=== PATIENT | female | born 1935 | race Caucasian/White ===

== ENCOUNTER 2016-09-19 19:05 | Emergency (ER) ==
[2016-09-19] MEDS ORDERED: TYLENOL ONE (19:17)
[2016-09-19] MEDS ORDERED: TYLENOL PO ONE (19:19)
[2016-09-19] MEDS ORDERED: XYLOCAINE-MPF 1% 5 ML ONE (20:50)
--- NOTE | 2016-09-19 21:09 | PROVIDER DOCUMENTATION ---
HPI-Head Injury - General Chief Complaint: Head Injury Stated Complaint: Fall Time Seen by Provider: 09/19/16 19:14 Source: patient Allergies/Adverse Reactions: Patient Allergies Allergy/AdvReac Type Severity Reaction Status Date / Time Penicillins Allergy Intermediate RASH Verified 09/19/16 19:11 Home Medications: Amlodipine [Norvasc] 5 mg PO QAM 08/18/13 Aspirin 81 mg PO DAILY 08/18/13 Atenolol 50 mg PO QPM 08/18/13 Clopidogrel [Plavix] 75 mg PO QAM 08/18/13 Furosemide 40 mg PO QAM 08/18/13 Glipizide 5 mg PO BID 08/18/13 Imipramine 20 mg PO QHS 08/18/13 Isosorbide Mononitrate E.r. [Imdur] 30 mg PO QAM 08/18/13 Levothyroxine [Synthroid] 50 microgm PO QAM 08/18/13 Simvastatin 40 mg PO QPM 08/18/13 Spironolactone 50 mg PO QAM 08/18/13 Thonzylamine/Phenylephrine/Dm [Poly-Hist Dm Liquid] 2 tsp PO 4XDAY PRN PRN 05/07 - History of Present Illness-Head Injury Nature of Presenting Problem: 81 y/o WF present the ED after tripping at home cuasin her to have a cut on the bridge of her nose and an abrasion on her forehead and left knee. No LOC per family Head Injury Location: reports: frontal Other injuries associated with incident:: reports: head, LLE Quality of Pain: reports: aching Severity: reports: mild, moderate Onset/Duration: reports: just prior to arrival Timing: reports: still present Method of Injury: reports: fell Any recent trauma/injury?: reports: none Loss of Consciousness: no loss of consciousness Modifying Factors: improves with: nothing Injury Associated Symptoms: denies: back/neck pain, chest pain, dizziness, headaches, shortness of breath, vomiting, trouble walking Locality of Occurance: Home Similar Symptoms Previously?: No Recently seen or treated by another doctor?: No Review of Systems - Adult - REVIEW OF SYSTEMS - ADULT Constitutional: denies: chills, fever Ears, Nose, Mouth & Throat: reports: ear pain Cardiovascular: denies: chest pain, edema Respiratory: denies: cough, shortness of breath, wheezing Musculoskeletal: reports: bone pain (nose), joint pain (left knee) Neurological: denies: dizziness/vertigo, headache/migraines Past History - Adult - PAST MEDICAL HISTORY-ADULT Review of Records: reports: Old Records Reviewed, Nursing Assessment Review Major Childhood Illnesses: reports: denies history Cardiovascular: reports: CAD, CHF, HTN, hyperlipidemia Respiratory: reports: COPD Gastrointestinal: reports: diverticulosis, polyps Genitourinary: reports: kidney disease Endocrine/Immune: reports: cancer (skin), Diabetes Other Conditions: reports: other (renal disease) - PRIOR SURGERIES/PROCEDURES Surgical/Procedure History: reports: appendectomy, cholecystectomy, cardiac stent, hysterectomy, BTL, tonsillectomy, other (ectopic ) - PRIOR HOSPITALIZATIONS Prior Hospitalizations: reports: none - IMMUNIZATION STATUS Childhood Immunizations: See Nurse Assessment Flu Vaccine: See Nurse Assessment - FAMILY HISTORY Family History: reviewed, not pertinent - SOCIAL HISTORY Smoking: non-smoker Living Situation: family Occupation: Retired Physical Exam- Neurological - Physical Exam-Neuro Initial Vital Signs Reviewed: Yes General Appearance: appears well, alert, no apparent distress Eye Exam: bilateral eye: normal inspection, PERRL, EOMI HENMT: TMs normal, pharynx normal, frontal tenderness. negative: normal ENT inspection (laceration bridge of nose) Head Injury: swelling (abrasion middle of forehead with mild swelling and bruising), tenderness. 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 Exam: normal hearing, normal speech, PERRL Coordination/Gait: normal finger to nose, normal gait Motor/Sensory: no motor deficit, no sensory deficit, no pronator drift Neurologic: grossly normal, no motor/sensory deficits Integumentary: normal color, normal turgor, warm/dry Psych/Mental Status: normal mood/affect, normal thought content, normal thought process, oriented x 3 Progress - PLAN OF CARE/RESULTS Progress/Plan/Lab Results: Orders Category Date Time Status FACIAL BONES [CT] Stat Exams 09/19/16 19:14 Taken HEAD/C-SPINE W/O CONTRAST [CT] Stat Exams 09/19/16 19:14 Taken KNEE 3 VIEWS RIGHT [RAD] Stat Exams 09/19/16 20:02 Taken Acetaminophen [Tylenol] Med 09/19/16 19:17 Discontinued 1,000 mg .ROUTE .STK-MED ONE Acetaminophen [Tylenol] Med 09/19/16 19:19 Discontinued 1,000 mg PO NOW ONE Lidocaine 1% Pf [Xylocaine-Mpf 1%] 5 ml Med 09/19/16 20:50 Discontinued .ROUTE As Directed Vital Signs Temp Pulse Resp BP Pulse Ox 09/19/16 19:07 99.4 F 68 18 134/66 95 Penicillins Allergy (Intermediate, Verified 09/19/16 19:11) RASH Amlodipine [Norvasc] 5 mg PO QAM 08/18/13 Aspirin 81 mg PO DAILY 08/18/13 Atenolol 50 mg PO QPM 08/18/13 Clopidogrel [Plavix] 75 mg PO QAM 08/18/13 Furosemide 40 mg PO QAM 08/18/13 Glipizide 5 mg PO BID 08/18/13 Imipramine 20 mg PO QHS 08/18/13 Isosorbide Mononitrate E.r. [Imdur] 30 mg PO QAM 08/18/13 Levothyroxine [Synthroid] 50 microgm PO QAM 08/18/13 Simvastatin 40 mg PO QPM 08/18/13 Spironolactone 50 mg PO QAM 08/18/13 Albuterol 2.5MG/Ipratrop 0.5MG [Duoneb] 3 ml INH Q4H PRN PRN #25 neb 07/19/14 Carbamazepine Chew [Tegretol] 100 mg PO BID #60 tablet 05/07/16 Hydrocodone/Acetaminophen [[place] 5-325 Tablet] 1 each PO Q4-6H PRN PRN #20 tablet 05/07/16 Thonzylamine/Phenylephrine/Dm [Poly-Hist Dm Liquid] 2 tsp PO 4XDAY PRN PRN 05/07 - CT/MRI 1 CT Study: Facial Bones Impression: Normal CT Results: forehaed contusion ohterwise NAD 2 CT Study: Cervical Spine, Head Impression: Abnormal CT Results: Head-NAD and Cspine-advanced spondylosis. NAD Procedures - LACERATION/WOUND REPAIR/FB Nose Wound Length: 2cm Wound's Depth, Shape: superficial Wound Explored/Foreign Body: clean Irrigated with Saline?: Yes Prepped with: Betadine Anesthetic: 1%, Lidocaine/Xylocaine Volume of Anesthetic (ml's): 4 Wound Repaired with: Sutures Suture Size/Type: 4.0, Nylon Number of Sutures: 3 Layer Closure?: No Sterile Dressing Applied?: No Splint Applied?: No Sling Applied?: No Post Procedure Neurovascular Exam: Intact Departure - Departure Time of Disposition Order: 21:05 DIAGNOSIS: Laceration of nose Qualifiers: Encounter type: initial encounter Qualified Code(s): S01.21XA - Laceration without foreign body of nose, initial encounter Fall Qualifiers: Encounter type: initial encounter Qualified Code(s): W19.XXXA - Unspecified fall, initial encounter Head contusion Qualifiers: Encounter type: initial encounter Contusion of head detail: unspecified part of head Qualified Code(s): S00.93XA - Contusion of unspecified part of head, initial encounter Disposition: HOME 01 Certified Medical Emergency: Emergent Condition: Stable Additional Instructions: Follow up with PCP ED Follow Up Instructions: You have been treated by a care provider in the Emergency Department. These instructions are being provided to you so you can have an understanding of how to care for yourself upon discharge. Upon discharge from the Emergency Department, you are responsible for making arrangements for follow-up care by a physician of your choice. Take all prescribed medications as directed. Return to the Emergency Department immediately for any new or worsening symptoms. You may call the Physician Referral phone number at [phone] to obtain a list of Physicians who are taking new patients. Attestation - Scribe Verification/Attestation Scribe:: Celso Casillas Acting as Scribe for:: Best Ortega Scribe documention review:: This chart was documented by a scribe and accurately reflects the service the provider performed and the decisions made by the provider.
[2016-09-19 21:15] VITALS: BP 128/67
--- NOTE | 2016-09-20 07:49 | Diag Imaging Result Document ---
PROCEDURE NAME: KNEE 3 VIEWS RIGHT - 09/19/2016 RIGHT KNEE, 3 VIEWS: COMPARISON: None. FINDINGS: There is peripheral vascular disease. No fracture or dislocation. No joint effusion. IMPRESSION: No acute disease.
--- NOTE | 2016-09-20 08:32 | Diag Imaging Result Document ---
PROCEDURE NAME: HEAD/C-SPINE W/O CONTRAST - 09/19/2016 CT HEAD AND C-SPINE WITHOUT CONTRAST: COMPARISON: CT head dated 05/07/2016. 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 There is no discrete intracranial mass, mass effect, or intracranial hemorrhage. There is no evidence of acute infarct given the limited sensitivity of CT versus MRI. There is mild scalp edema at the forehead at and to the right of midline indicating a mild contusion. The calvaria is grossly intact. C-SPINE: There is extensive degenerative disk disease at virtually every cervical level, most severe at and below C4-5. There is also multilevel facet arthropathy. There is mild anterolisthesis of C2 on C3 and C3 on C4 that appears to be related to degenerative arthropathy. There is central canal and neural foraminal narrowing at multiple levels, but it appears to be chronic. There is no evidence of fracture or intrinsic osseous lesion, otherwise. Surrounding soft tissues are essentially unremarkable. IMPRESSION: 1. Stable brain with no evidence of acute intracranial pathology. 2. Extensive multilevel degenerative arthropathy throughout the cervical spine but no evidence of fracture or other definite acute C-spine injury.
--- NOTE | 2016-09-20 08:42 | Diag Imaging Result Document ---
PROCEDURE NAME: FACIAL BONES - 09/19/2016 CT FACIAL BONES WITHOUT CONTRAST: COMPARISON: None available. FINDINGS: There is no evidence of facial bone fracture. Specifically, the orbits are intact. The mandible is normally located. There is minimal bilateral maxillary sinus mucosal thickening. There is mild soft tissue edema at the forehead. The globes are intact. There is no evidence of retrobulbar hematoma. Otherwise, the surrounding soft tissues are essentially unremarkable. IMPRESSION: Mild soft tissue contusion at the forehead but no evidence of facial bone fracture.
== END 2016-09-19 21:31 | disposition home or self-care (01) ==
LOC: P.ED 19:05
DX: S01.21XA Laceration without foreign body of nose, initial encounter (principal); S00.83XA Contusion of other part of head, initial encounter; S00.81XA Abrasion of other part of head, initial encounter; S80.212A Abrasion, left knee, initial encounter; J34.89 Other specified disorders of nose and nasal sinuses; M25.562 Pain in left knee; R22.0 Localized swelling, mass and lump, head; H92.09 Otalgia, unspecified ear; Z79.899 Other long term (current) drug therapy; I25.10 Atherosclerotic heart disease of native coronary artery without angina pectoris; I50.9 Heart failure, unspecified; I10 Essential (primary) hypertension; E78.5 Hyperlipidemia, unspecified; J44.9 Chronic obstructive pulmonary disease, unspecified; E11.9 Type 2 diabetes mellitus without complications; Z79.02 Long term (current) use of antithrombotics/antiplatelets; Z79.82 Long term (current) use of aspirin; Z95.5 Presence of coronary angioplasty implant and graft; W01.0XXA Fall on same level from slipping, tripping and stumbling without subsequent striking against object, initial encounter
CPT/HCPCS: 70450; 70486; 72125

== ENCOUNTER 2016-09-27 09:48 | Emergency (ER) ==
[2016-09-27 09:56] VITALS: BP 136/54
--- NOTE | 2016-09-27 10:11 | PROVIDER DOCUMENTATION ---
HPI-Rash/Wound/ReCheck - General Source: patient, family - History of Present Illness-Dermatology Location: reports: face Quality: reports: none Severity: reports: mild Onset/Duration: reports: other (8 dys) Context/Associated Symptoms: reports: laceration Identifiable cause?: Yes Locality of Occurance: Home Similar Symptoms Previously?: Yes Recently seen or treated by another doctor?: Yes - Recheck Treated days ago.: 8 Previous Treatment: laceration repair Antibiotics given: prescription Symptoms since procedure:: reports: no complaints <Shiv Muhammad - Last Filed: 09/27/16 10:06> <Adeline Boogei - Last Filed: 09/27/16 10:25> - General Chief Complaint: Suture/Staple Removal Stated Complaint: SUTURE/STAPLE REMOVAL Time Seen by Provider: 09/27/16 10:04 Allergies/Adverse Reactions: Allergies Allergy/AdvReac Type Severity Reaction Status Date / Time Penicillins Allergy Intermediate RASH Verified 09/27/16 09:56 Home Medications: Amlodipine [Norvasc] 5 mg PO QAM 08/18/13 Aspirin 81 mg PO DAILY 08/18/13 Atenolol 50 mg PO QPM 08/18/13 Clopidogrel [Plavix] 75 mg PO QAM 08/18/13 Furosemide 40 mg PO QAM 08/18/13 Glipizide 5 mg PO BID 08/18/13 Imipramine 20 mg PO QHS 08/18/13 Isosorbide Mononitrate E.r. [Imdur] 30 mg PO QAM 08/18/13 Levothyroxine [Synthroid] 50 microgm PO QAM 08/18/13 Simvastatin 40 mg PO QPM 08/18/13 Spironolactone 50 mg PO QAM 08/18/13 Thonzylamine/Phenylephrine/Dm [Poly-Hist Dm Liquid] 2 tsp PO 4XDAY PRN PRN 05/07 - History of Present Illness-Dermatology Nature of Presenting Problem: Pt reports she fell on 09/19/16 had a lac across nasal bridge and returns to er today for suture removal. Denies n,v,blurry vision,headache,signs of infection. Pt has noteable ecchymosis to bilateral eyes. (Shiv Muhammad) Review of Systems - Adult - REVIEW OF SYSTEMS - ADULT Constitutional: denies: chills, fever, fatique Eyes: reports: no symptoms reported Ears, Nose, Mouth & Throat: reports: no symptoms reported Cardiovascular: denies: chest pain, irregular heart rate, orthopnea Respiratory: reports: no symptoms reported Gastrointestinal: reports: no symptoms reported Genitourinary: reports: no symptoms reported Musculoskeletal: reports: no symptoms reported Integumentary: reports: see HPI. denies: mole changes, nail changes Neurological: reports: no symptoms reported Psychiatric: reports: no symptoms reported Endocrine: reports: no symptoms reported Hematologic/Lymphatic: reports: no symptoms reported Allergic/Immunologic: reports: no symptoms reported All Other Systems: Reviewed and Negative <Shiv Muhammad - Last Filed: 09/27/16 10:06> Past History - Adult - PAST MEDICAL HISTORY-ADULT Review of Records: reports: Nursing Assessment Review Major Childhood Illnesses: reports: denies history Cardiovascular: reports: CAD, CHF, HTN, hyperlipidemia Respiratory: reports: COPD Gastrointestinal: reports: diverticulosis, polyps Genitourinary: reports: kidney disease Endocrine/Immune: reports: cancer (skin), Diabetes Other Conditions: reports: other (renal disease) - PRIOR SURGERIES/PROCEDURES Surgical/Procedure History: reports: appendectomy, cholecystectomy, cardiac stent, hysterectomy, BTL, tonsillectomy, other (ectopic ) - PRIOR HOSPITALIZATIONS Prior Hospitalizations: reports: none - IMMUNIZATION STATUS Childhood Immunizations: See Nurse Assessment Flu Vaccine: See Nurse Assessment - FAMILY HISTORY Family History: reviewed, not pertinent - SOCIAL HISTORY Smoking: denies Substance Use: none/never <Shiv Muhammad - Last Filed: 09/27/16 10:06> Physical Exam-General - PHYSICAL EXAM-ADULT Initial Vital Signs Reviewed: Yes - CONSTITUTIONAL General Appearance: appears well, alert, no apparent distress - EYES Eyes: PERRL/EOMI, pink conjunctivae - HEAD, EARS, NOSE, MOUTH & THROAT HENMT: normocephalic/atraumatic, moist mucous membranes, TMs normal, pharynx normal, other (laceration with sutures to nasal bridge; ecchymosis bilateral eyes.) - NECK Neck: non-tender, full range of motion, supple, normal inspection - RESPIRATORY Respiratory: chest non-tender, lungs clear, normal breath sounds, no pleuratic chest pain, no respiratory distress, no accessory muscle use - CARDIOVASCULAR Cardiovascular: normal peripheral pulses, regular rate, rhythm, no edema, no gallop, no JVD, no murmur - GASTROINTESTINAL (ABDOMEN) Abdominal Exam: normal bowel sounds, non tender, soft, no organomegaly, no pulsatile mass - LYMPHATIC Lymphatic: no adenopathy - MUSCULOSKELETAL Back Exam: normal inspection, no CVA tenderness, no vertebral tenderness Extremity: normal range of motion, non-tender, normal gait - SKIN Integumentary: normal color, normal turgor, warm/dry, abrasion(s) (right knee) - NEUROLOGIC Neurologic: grossly normal, no motor/sensory deficits - PSYCHIATRIC Psych/Mental Status: normal mood/affect, normal thought content, normal thought process, oriented x 3 <JbShiv - Last Filed: 09/27/16 10:06> - MUSCULOSKELETAL Extremity: other (R anterior knee abrasion site - mild cellulitis. Pt has DMII) <Adeline Boogie X - Last Filed: 09/27/16 10:25> Progress <JbShiv - Last Filed: 09/27/16 10:06> <Adeline Boogie X - Last Filed: 09/27/16 10:25> - PLAN OF CARE/RESULTS Progress/Plan/Lab Results: Vital Signs - 24 hr 09/27/16 09:53 Temperature 97.7 F Pulse Rate 64 Respiratory 16 Rate Blood Pressure 136/54 O2 Sat by Pulse 100 Oximetry MD removed 3 sutures from pt nasal bridge. No signs of infection,drainage, redness or swelling (JbShiv) Departure - Departure Time of Disposition Order: 10:10 Certified Medical Emergency: Emergent <JbOtissudhakar - Last Filed: 09/27/16 10:06> - Departure Time of Disposition Order: 10:22 Certified Medical Emergency: Emergent <Tin Boogiefito X - Last Filed: 09/27/16 10:25> - Departure DIAGNOSIS: Visit for suture removal Cellulitis Qualifiers: Site of cellulitis: extremity Site of cellulitis of extremity: lower extremity Laterality: right Qualified Code(s): L03.115 - Cellulitis of right lower limb Disposition: HOME 01 Condition: Stable Additional Instructions: ED Follow Up Instructions: You have been treated by a care provider in the Emergency Department. These instructions are being provided to you so you can have an understanding of how to care for yourself upon discharge. Upon discharge from the Emergency Department, you are responsible for making arrangements for follow-up care by a physician of your choice. Take all prescribed medications as directed. Return to the Emergency Department immediately for any new or worsening symptoms. You may call the Physician Referral phone number at [phone] to obtain a list of Physicians who are taking new patients. Prescriptions: Mupirocin Ointment [Bactroban Ointment] 1 applicatn TOP TID #1 tube Doxycycline Hyclate 100 mg PO BID #20 capsule Referrals: Jag Jackson MD [Primary Care Provider] - Attestation - Scribe Verification/Attestation Scribe:: Shiv Muhammad Acting as Scribe for:: Adeline Boogie Scribe documention review:: This chart was documented by a scribe and accurately reflects the service the provider performed and the decisions made by the provider. <Shiv Muhammad - Last Filed: 09/27/16 10:06> Physician Attestation
== END 2016-09-27 10:33 | disposition home or self-care (01) ==
LOC: P.ED 09:48
DX: S01.21XD Laceration without foreign body of nose, subsequent encounter (principal); L03.115 Cellulitis of right lower limb; S80.211A Abrasion, right knee, initial encounter; S00.12XA Contusion of left eyelid and periocular area, initial encounter; S00.11XA Contusion of right eyelid and periocular area, initial encounter; I25.10 Atherosclerotic heart disease of native coronary artery without angina pectoris; I50.9 Heart failure, unspecified; I10 Essential (primary) hypertension; Z79.899 Other long term (current) drug therapy; E78.5 Hyperlipidemia, unspecified; J44.9 Chronic obstructive pulmonary disease, unspecified; E11.9 Type 2 diabetes mellitus without complications; Z79.02 Long term (current) use of antithrombotics/antiplatelets; Z79.82 Long term (current) use of aspirin; Z85.828 Personal history of other malignant neoplasm of skin; Z95.5 Presence of coronary angioplasty implant and graft
CPT/HCPCS: 99282

== ENCOUNTER 2018-11-17 11:21 | Inpatient (IN) ==
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
--- NOTE | 2018-11-17 14:31 | EKG Report ---
Test Performed on : 11/17/2018 2:17:54 PM Test Reason : CP Blood Pressure : / mmHG Vent. Rate : 088 BPM Atrial Rate : 088 BPM P-R Int : 202 ms QRS Dur : 070 ms QT Int : 336 ms P-R-T Axes : 000 073 231 degrees QTc Int : 406 ms Sinus rhythm. with premature supraventricular complexes. ST & T wave abnormality, consider inferolateral ischemia Abnormal ECG When compared with ECG of 31-AUG-2018 00:08, premature supraventricular complexes. are now present T wave inversion now evident in Inferior leads T wave inversion now evident in Lateral leads QT has shortened Unconfirmed Result
[2018-11-17 14:51] LABS: BASO# 0.02 X1000 (0.0-0.2); BASO% 0.3 % (0.0-0.8); EOS# 0.02 X1000 (0.0-0.7); EOS% 0.3 % (0.0-10.0); HEMATOCRIT 46.4 % (37.0-47.0); HEMOGLOBIN 16.1 g/dL (12.0-16.0); IMM GRAN# 0.06 X1000 (0.0-0.04); IMM GRAN% 0.9 % (0.0-0.5); LYMPH# 2.83 X1000 (1.2-3.4); LYMPH% 43.4 % (20.5-51.1); MCH 30.5 PG (27-31); MCHC 34.7 g/dL (33-37); MCV 87.9 FL (81-99); MONO# 0.49 X1000 (0.11-0.59); MONO% 7.5 % (1.7-9.3); MPV 10.5 FL (7.4-10.4); NEUT% 47.6 % (42.2-75.2); PLT 220 X1000 (130-400); RBC 5.28 XMIL (4.2-5.4); RDW 12.6 % (11.5-14.5); WBC 6.52 X1000 (4.8-10.8)
[2018-11-17] MEDS ORDERED: NORCO-10 PO ONE (14:54)
[2018-11-17 15:16] LABS: AGAP 15; ALBUMIN 4.4 g/dL (3.5-5.0); ALKALINE PHOSPHATASE 87 U/L (32-104); BUN 14 mg/dL (8-22); CALCIUM 9.2 mg/dL (8.8-10.2); CHLORIDE 95 mmol/L (98-107); CK PROFILE 58 U/L (24-173); COSMO 269; CREATININE 0.7 mg/dL (0.5-0.9); ESTIMATED GFR > 60; GLUCOSE 70 mg/dL (70-104); GOT 51 U/L (10-30); GPT 49 U/L (10-36); POTASSIUM 4.2 mmol/L (3.5-5.1); SODIUM 135 mmol/L (136-145); TCO2 25 mmol/L (25-35); TOTAL PROTEIN 7.6 g/dL (6.3-8.3)
[2018-11-17] MEDS ORDERED: CLINDAMYCIN 600 MG/D5W 600 MG/50 ML IVPB IV ONE (15:27)
[2018-11-17 16:27] LABS: BILIRUBIN URINE NEGATIVE (NEGATIVE); BLOOD URINE NEGATIVE (NEGATIVE); CLARITY CLEAR (CLEAR); COLOR YELLOW; GLUCOSE URINE NEGATIVE (NEGATIVE); KETONE URINE NEGATIVE (NEGATIVE); LEUKOCYTES URINE NEGATIVE (NEGATIVE); NITRITE URINE NEGATIVE (NEGATIVE); PROTEIN URINE NEGATIVE (NEGATIVE); UROBILINOGEN URINE NORMAL
[2018-11-17 17:02] LABS: URINE BACTERIA NEGATIVE /HFP; URINE EPITHELIAL CELLS <10 /HPF (<10); URINE RBC <10 /HPF (<10); URINE SOURCE CLEAN CATCH; URINE WBC <10 /HPF (<10)
[2018-11-17] MEDS ORDERED: TYLENOL PO PRN (17:21)
[2018-11-17] MEDS ORDERED: ZOFRAN IV PRN (17:21)
[2018-11-17] MEDS ORDERED: NS 1,000 ML IV SCH (17:30)
[2018-11-17] MEDS ORDERED: VANCOMYCIN IV PER PHARMACY MISC SCH (17:30)
[2018-11-17] MEDS: ROCEPHIN 1 GM in NS 50 ML IV SCH (18:08)
[2018-11-17] MEDS: HUMALOG (PARKWAY) SUBQ SCH (21:52)
[2018-11-17] MEDS: VANCOMYCIN 1 GM/NS 1 GM/250 ML IVPB IV SCH (22:05)
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
[2018-11-18 06:25] LABS: HEMATOCRIT 39.5 % (37.0-47.0); HEMOGLOBIN 13.4 g/dL (12.0-16.0); MCHC 33.9 g/dL (33-37); MCV 88.6 FL (81-99); MPV 10.5 FL (7.4-10.4); RBC 4.46 XMIL (4.2-5.4); RDW 12.8 % (11.5-14.5); WBC 5.9 X1000 (4.8-10.8)
[2018-11-18 06:39] LABS: HEMOGLOBIN A1C 6.2 % (4.8-6.0)
[2018-11-18] MEDS: HUMALOG (PARKWAY) SUBQ SCH ×4 (06:48→20:54)
[2018-11-18 06:49] LABS: AGAP 11; ALBUMIN 3.3 g/dL (3.5-5.0); ALKALINE PHOSPHATASE 63 U/L (32-104); BUN 8 mg/dL (8-22); CALCIUM 7.9 mg/dL (8.8-10.2); CHLORIDE 107 mmol/L (98-107); COSMO 279; CREATININE 0.5 mg/dL (0.5-0.9); ESTIMATED GFR > 60; GLUCOSE 81 mg/dL (70-104); GOT 32 U/L (10-30); GPT 30 U/L (10-36); MAGNESIUM 1.8 mg/dL (1.5-2.7); POTASSIUM 3.8 mmol/L (3.5-5.1); SODIUM 141 mmol/L (136-145); TCO2 23 mmol/L (25-35); TOTAL PROTEIN 5.7 g/dL (6.3-8.3)
--- NOTE | 2018-11-18 07:43 | Diag Imaging Result Doc PS360 ---
EXAM: FOOT COMPLETE LEFT - 11/17/2018 HISTORY: injury TECHNIQUE: Left foot three views COMPARISON: 11/15/2018 FINDINGS: Exam is submitted for dictation on the morning of 11/18/2018. The bones are possibly osteopenic. There are some osteoarthritic changes. There are no destructive changes identified. There is no fracture or dislocation identified. There are some atherosclerotic calcifications noted at the posterior ankle region. IMPRESSION: No evidence of fracture or dislocation. Electronically signed by Jesús Santos 11/18/2018 7:40 AM
[2018-11-18] MEDS ORDERED: MYCOSTATIN SUSP PO SCH (09:00)
[2018-11-18] MEDS: MYCOSTATIN SUSP PO SCH ×3 (13:39→21:06)
[2018-11-18] MEDS: ROCEPHIN 1 GM in NS 50 ML IV SCH (17:44)
[2018-11-18] MEDS ORDERED: NORCO-10 PO PRN (18:46)
[2018-11-18] MEDS ORDERED: DUONEB (A & A) INH PRN (18:46)
[2018-11-18] MEDS ORDERED: NITROGLYCERIN SL PRN (18:46)
[2018-11-18] MEDS ORDERED: IMIPRAMINE HCL 20 MG PO SCH (21:00)
[2018-11-18] MEDS ORDERED: CARAFATE PO SCH (21:00)
[2018-11-18] MEDS: NON-FORMULARY MED PO SCH (21:05)
[2018-11-18] MEDS: GLUCOTROL PO SCH (21:05)
[2018-11-18] MEDS: ZOCOR PO SCH (21:05)
[2018-11-18] MEDS: TENORMIN PO SCH (21:05)
[2018-11-18] MEDS: NORCO-10 PO SCH (21:06)
--- NOTE | 2018-11-18 23:36 | PROGRESS NOTE ---
DATE: 11/18/2018 SUBJECTIVE: Patient notes she is still having lots of pain in her foot, pressure walking on it. Denies any fevers or chills. Denies any swelling or redness. OBJECTIVE: Vital signs: Temperature 97.5 degrees, pulse 88, respiratory 20, BP 188/70. General: Patient is awake, alert, very pleasant to talk with. She is in no current respiratory distress. HEENT: Normocephalic. Neck: Supple. CARDIOVASCULAR: Regular rate. Chest: Clear, nonlabored. Abdomen: Soft, nondistended. Extremities: Moves all extremities, has pain with palpation of her left foot. No redness. No swelling. ASSESSMENT: 1. Puncture wound, left foot. 2. Diabetes. 3. Hypertension. PLAN: Continue vancomycin and Rocephin. Rule out osteomyelitis and will follow. cc: Hipolito Dee MD
[2018-11-19] MEDS: NORCO-10 PO SCH ×3 (05:02→18:20)
[2018-11-19] MEDS: SYNTHROID PO SCH ×2 (06:31→06:34)
[2018-11-19] MEDS: HUMALOG (PARKWAY) SUBQ SCH ×4 (06:32→21:30)
[2018-11-19] MEDS: LASIX PO SCH (09:01)
[2018-11-19] MEDS: MYCOSTATIN SUSP PO SCH ×4 (09:01→21:36)
[2018-11-19] MEDS: ASPIRIN PO SCH (09:02)
[2018-11-19] MEDS: CULTURELLE PO SCH (09:02)
[2018-11-19] MEDS: CARAFATE PO SCH ×2 (09:02→16:58)
[2018-11-19] MEDS: PLAVIX PO SCH (09:02)
[2018-11-19] MEDS: ALDACTONE PO SCH (09:02)
[2018-11-19] MEDS: COLACE PO SCH (09:02)
[2018-11-19] MEDS: GLUCOTROL PO SCH ×2 (09:02→21:30)
[2018-11-19] MEDS: IMDUR PO SCH (09:02)
[2018-11-19] MEDS: ROCEPHIN 1 GM in NS 50 ML IV SCH (16:58)
[2018-11-19] MEDS: VANCOMYCIN 1 GM/NS 1 GM/250 ML IVPB IV SCH (18:20)
[2018-11-19] MEDS: ZOCOR PO SCH (21:31)
[2018-11-19] MEDS: TENORMIN PO SCH (21:31)
[2018-11-19] MEDS: NON-FORMULARY MED PO SCH (21:36)
--- NOTE | 2018-11-19 22:10 | PROGRESS NOTE ---
DATE: 11/19/2018 SUBJECTIVE: Patient notes that her foot is still hurting, but not any worse, in fact, may be slightly better. Denies any fevers or chills. Denies any redness or streaking around the foot. PHYSICAL EXAM: Vital signs: Temperature 97.4 degrees, pulse 62, respiratory 18, BP 122/50. General: Patient is awake, alert. She is in no distress. Very pleasant to talk with. HEENT: Normocephalic. Neck: Supple. CARDIOVASCULAR: Regular rate. No murmurs. Chest: Clear, nonlabored. Abdomen: Soft, nondistended, nontender. Extremities: Moves all extremities. She is tender over her dorsal aspect of her left foot. Actually has less deep bluish discoloration from bruising. No streaking. Minimal surrounding erythema. Neurologic: No focal neurological changes. ASSESSMENT: 1. Puncture wound, left foot with mild cellulitis. No current osteomyelitis. 2. Diabetes. 3. Hypertension. PLAN: We will continue patient in the hospital until cultures are negative. We will repeat x-ray in the morning, if no osteoporosis is noted then we will discharge her home on antibiotics. cc: Hipolito Dee MD
[2018-11-20] MEDS: NORCO-10 PO SCH ×2 (02:28→10:37)
[2018-11-20] MEDS: SYNTHROID PO SCH (06:15)
[2018-11-20] MEDS: HUMALOG (PARKWAY) SUBQ SCH ×2 (06:15→11:10)
[2018-11-20] MEDS: CARAFATE PO SCH ×2 (06:18→07:29)
[2018-11-20 06:39] LABS: HEMATOCRIT 36.2 % (37.0-47.0); HEMOGLOBIN 12.1 g/dL (12.0-16.0); MCHC 33.4 g/dL (33-37); MCV 89.8 FL (81-99); MPV 10.7 FL (7.4-10.4); RBC 4.03 XMIL (4.2-5.4); WBC 6.92 X1000 (4.8-10.8)
[2018-11-20 06:51] LABS: AGAP 11; ALBUMIN 3.1 g/dL (3.5-5.0); ALKALINE PHOSPHATASE 57 U/L (32-104); BUN 8 mg/dL (8-22); CALCIUM 8.4 mg/dL (8.8-10.2); CHLORIDE 105 mmol/L (98-107); COSMO 279; CREATININE 0.5 mg/dL (0.5-0.9); ESTIMATED GFR > 60; GLUCOSE 83 mg/dL (70-104); GOT 24 U/L (10-30); GPT 23 U/L (10-36); MAGNESIUM 1.8 mg/dL (1.5-2.7); POTASSIUM 3.2 mmol/L (3.5-5.1); SODIUM 141 mmol/L (136-145); TCO2 25 mmol/L (25-35); TOTAL BILIRUBIN < 0.15 mg/dL (0.20-1.00); TOTAL PROTEIN 5.7 g/dL (6.3-8.3)
--- NOTE | 2018-11-20 07:44 | Diag Imaging Result Doc PS360 ---
EXAM: FOOT COMPLETE LEFT HISTORY: rule out osteo TECHNIQUE: Left foot, three views COMPARISON: 11/17/2018 FINDINGS: No fracture. No dislocation. The bones are osteopenic. Mild narrowing to the first metatarsal phalangeal joint. Tiny calcaneal bone spur. No bone erosions. IMPRESSION: No plain film evidence of osteomyelitis. Electronically signed by Sharad Goss 11/20/2018 7:42 AM
[2018-11-20 07:56] VITALS: BP 147/53
[2018-11-20] MEDS: CULTURELLE PO SCH (08:20)
[2018-11-20] MEDS: ALDACTONE PO SCH (08:20)
[2018-11-20] MEDS: IMDUR PO SCH (08:21)
[2018-11-20] MEDS: MYCOSTATIN SUSP PO SCH (08:21)
[2018-11-20] MEDS: ASPIRIN PO SCH (08:21)
[2018-11-20] MEDS: GLUCOTROL PO SCH (08:21)
[2018-11-20] MEDS: COLACE PO SCH (08:21)
[2018-11-20] MEDS: PLAVIX PO SCH (08:21)
[2018-11-20] MEDS: LASIX PO SCH (08:21)
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
--- NOTE | 2018-11-21 20:23 | DISCHARGE SUMMARY ---
ADMISSION DATE: 11/17/2018 DISCHARGE DATE: 11/20/2018 ADDENDUM: Patient seen and examined by myself. Full note dictated and discussed with nurse practitioner. On discharge, the patient is awake, alert, and currently in no distress. Overall, she notes that she is feeling better. Still having pain and swelling in her lower extremities, but her left foot has improved. We will discharge her home on antibiotics. She will follow up outpatient. cc: Hipolito Dee MD
== END 2018-11-20 12:24 | disposition home or self-care (01) | DRG 603 ==
LOC: P.ED 11:21 → P.MEDSURG 18:14
PROVIDERS: ATTEND Family Medicine
CPT/HCPCS: 36415; 73620; 73630; 80053; 81001; 82550; 82948; 83036; 83605; 83735; 84443; 84484; 85025; 85027; 87040; 90471; 90715; 93005; 94761; 96365; 96367; 99283; 99285; A9270; J0696; J2405; J3370; J7030; XXXXX

== ENCOUNTER 2019-02-05 12:42 | Inpatient (IN) ==
[2019-02-05 13:50] LABS: BASO# 0.03 X1000 (0.0-0.2); BASO% 0.4 % (0.0-0.8); EOS# 0.19 X1000 (0.0-0.7); EOS% 2.8 % (0.0-10.0); HEMATOCRIT 40.8 % (37.0-47.0); HEMOGLOBIN 13.8 g/dL (12.0-16.0); IMM GRAN# 0.02 X1000 (0.0-0.04); IMM GRAN% 0.3 % (0.0-0.5); LYMPH# 2.04 X1000 (1.2-3.4); MCHC 33.8 g/dL (33-37); MCV 91.7 FL (81-99); MONO# 0.61 X1000 (0.11-0.59); MPV 11.3 FL (7.4-10.4); NEUT# 3.91 X1000 (1.4-6.5); NEUT% 57.5 % (42.2-75.2); PLT 176 X1000 (130-400); RBC 4.45 XMIL (4.2-5.4); RDW 12.6 % (11.5-14.5)
[2019-02-05 13:55] LABS: INR 0.91
[2019-02-05 13:56] LABS: PTT 28.8 Seconds (22.3-41.8)
[2019-02-05 14:21] LABS: ALB/GLOB RATIO 1.1; ALBUMIN 3.5 g/dL (3.5-5.0); CALCIUM 8.4 mg/dL (8.8-10.2); CREATININE 0.9 mg/dL (0.5-0.9); POTASSIUM 4.5 mmol/L (3.5-5.1); TOTAL BILIRUBIN 0.27 mg/dL (0.20-1.00); TOTAL PROTEIN 6.6 g/dL (6.3-8.3)
--- NOTE | 2019-02-05 15:23 | Diag Imaging Result Doc PS360 ---
EXAM: CT ABD/PELVIS W/IV CONT ONLY 02/05/2019 HISTORY: colitis TECHNIQUE: This exam was performed using automated exposure control, adjustment of mA or kV according to patient size, and/or use of iterative reconstruction technique. COMMENT: There is no evidence of acute disease in the visualized portion of the chest. There are atherosclerotic calcifications throughout the aorta and there is an infrarenal abdominal aortic aneurysm measuring 2.2 cm in diameter. 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 This abnormality was also present on the previous study of 10/29/2016 at which time it measured 18 mm, and is presumably relatively stable. The iliac arteries are densely calcified. There has been cholecystectomy. There are calcified granulomata in the spleen. The adrenal glands are stable in appearance. The pancreas has not changed significantly in appearance. There is stool throughout the colon. There is no evidence of mucosal thickening. The small bowel is not distended. There is no evidence of significant adenopathy. Pelvis: There is diverticulosis in the sigmoid colon without evidence of acute diverticulitis. There has been hysterectomy. The urinary bladder is slightly distended. There is no evidence of free fluid. There is no evidence of acute bony abnormality. IMPRESSION: Constipation and diverticulosis coli. No evidence of active diverticulitis or colitis. Electronically signed by Bishnu Trejo 02/05/2019 3:21 PM
[2019-02-05] MEDS ORDERED: SODIUM CHLORIDE 0.9% INJ ONE (15:55)
[2019-02-05] MEDS ORDERED: NEXIUM IV ONE (15:55)
[2019-02-05] MEDS ORDERED: ZOFRAN IV PRN (16:10)
[2019-02-05] MEDS ORDERED: TYLENOL PO PRN (16:10)
[2019-02-05] MEDS ORDERED: NS 1,000 ML IV SCH (16:15)
--- NOTE | 2019-02-05 17:39 | PROVIDER DOCUMENTATION ---
This chart was entered by Chloe Price Scribe, acting as scribe for Chris Stanton MD. HPI-Abdominal Pain/GI Problem - General Chief Complaint: GI Bleed Stated Complaint: BLEEDING Time Seen by Provider: 02/05/19 12:59 Source: patient Allergies/Adverse Reactions: Patient Allergies Allergy/AdvReac Type Severity Reaction Status Date / Time Penicillins Allergy Intermediate RASH Verified 11/15/18 11:30 Home Medications: Home Medication List Medication Instructions Recorded Confirmed Last Taken Type Aspirin 81 mg PO DAILY 08/18/13 11/18/18 01/14/17 08:00 History Clopidogrel [Plavix] 75 mg PO DAILY 08/18/13 11/18/18 01/14/17 09:00 History Glipizide 5 mg PO BID 08/18/13 11/18/18 01/14/17 08:00 History Isosorbide Mononitrate E.r. [Imdur] 30 mg PO DAILY 08/18/13 11/18/18 01/14/17 09:00 History Levothyroxine [Synthroid] 50 microgm PO DAILY@0700 08/18/13 11/18/18 10/28/16 09:00 History Hydrocodone/Acetaminophen [[place] 1 each PO Q8HR PRN 04/20/17 11/18/18 Unknown History 10-325 Tablet] Atenolol 50 mg PO QHS 02/10/18 11/18/18 Unknown History Lactobacillus Acidophilus 1 each PO DAILY 02/10/18 11/18/18 Unknown History [Acidophilus Lactobacilli] Nitroglycerin Sl [Nitroglycerin] 0.4 mg SL PRN PRN 02/10/18 11/18/18 Unknown History SIMVAstatin [Zocor] 40 mg PO QHS 02/10/18 11/18/18 Unknown History Spironolactone 50 mg PO DAILY 02/10/18 11/18/18 Unknown History Furosemide [Lasix] 20 mg PO DAILY 02/16/18 11/18/18 Unknown History Docusate Sodium [Stool Softener] 100 mg PO DAILY 06/04/18 11/18/18 Unknown History Imipramine HCl 20 mg PO HS 08/25/18 11/18/18 Unknown History Albuterol 2.5MG/Ipratrop 0.5MG 3 ml INH Q4H PRN PRN #180 neb 08/29/18 11/18/18 Unknown Rx [Duoneb (A & A)] Sucralfate 1 gm PO BID 11/18/18 11/18/18 Unknown History Cephalexin [Keflex] 500 mg PO TID #30 cap 11/20/18 Unknown Rx - History of Present Illness-ABD Nature of Presenting Problems: 83 yowf presents to the ed with c/o rectal bleeding with abdominal cramping this am. pt sts was feeling good when sitting on the couch she has some cramping, pt got up went to the bathroom to have a bm and noticed bright red blood in toilet. pt sts had hx of hemorrhoids but never bleeding like this Abdominal Pain Onset Location: reports: generalized abdomen Pain Radiation: reports: no radiation Quality of Pain: reports: cramping Severity in ED: reports: mild Onset/Duration: reports: just prior to arrival Activities at Onset: reports: light activity Exposure to sick contacts?: No Modifying Factors: improves with: nothing. worse with: defecating Associated Symptoms: reports: other (rectal bleeding). denies: back/neck pain, chest pain, fatigue, fever/chills, headaches, nausea, shortness of breath, syncope, vomiting, weakness Last BM: this afternoon Dark Stools Present?: reports: bright red blood Rectal Bleeding: reports: bright red blood on paper # of Diarrhea Episodes: 0 Rectal Pain: reports: none # of Vomiting Episodes: 0 Emesis Description: reports: none Bruising or Bleeding Gums?: No Similar Symptoms Previously?: Yes (hemorrhoids ) Recently seen or treated by another doctor?: No Review of Systems - Adult - REVIEW OF SYSTEMS - ADULT Constitutional: reports: no symptoms reported Eyes: reports: no symptoms reported Ears, Nose, Mouth & Throat: reports: no symptoms reported Cardiovascular: denies: chest pain, palpitations Respiratory: denies: cough, shortness of breath, wheezing Gastrointestinal: reports: see HPI, abdominal pain, rectal bleeding. denies: diarrhea, nausea, vomiting Genitourinary: reports: no symptoms reported Musculoskeletal: denies: back pain, neck pain Integumentary: reports: no symptoms reported Neurological: denies: dizziness/vertigo, headache/migraines Psychiatric: reports: no symptoms reported Endocrine: reports: no symptoms reported Hematologic/Lymphatic: reports: no symptoms reported Allergic/Immunologic: reports: no symptoms reported All Other Systems: Reviewed and Negative Past History - Adult - PAST MEDICAL HISTORY-ADULT Review of Records: reports: Nursing Assessment Review, Medications Reviewed Major Childhood Illnesses: reports: denies history Cardiovascular: reports: CAD, CHF, HTN, hyperlipidemia Respiratory: reports: COPD Gastrointestinal: reports: diverticulosis, hemorrhoids, polyps Obstetrical/Gynecological: reports: denies history Genitourinary: reports: kidney disease Musculoskeletal: reports: denies history, arthritis Hand Dominance: Right Handed Neurological: reports: denies history Psychiatric: reports: denies history Endocrine/Immune: reports: Diabetes, thyroid disorder Other Conditions: reports: other cancer (skin), other (renal disease) - PRIOR SURGERIES/PROCEDURES Surgical/Procedure History: reports: recent surgery (01/27/18), appendectomy, cholecystectomy, cardiac stent, hysterectomy, BTL, tonsillectomy, other (ectopic ; vocal chords) - PRIOR HOSPITALIZATIONS Prior Hospitalizations: reports: none - IMMUNIZATION STATUS Childhood Immunizations: See Nurse Assessment Flu Vaccine: See Nurse Assessment - FAMILY HISTORY Family History: reviewed, not pertinent - SOCIAL HISTORY Smoking: denies Substance Use: denies Alcohol Use Frequency: never Living Situation: family Physical Exam-General - PHYSICAL EXAM-ADULT Initial Vital Signs Reviewed: Yes - CONSTITUTIONAL General Appearance: appears well, alert, mild distress - EYES Eyes: PERRL/EOMI, pink conjunctivae - HEAD, EARS, NOSE, MOUTH & THROAT HENMT: moist mucous membranes - NECK Neck: full range of motion, supple, normal inspection - RESPIRATORY Respiratory: chest non-tender, lungs clear, normal breath sounds - CARDIOVASCULAR Cardiovascular: normal peripheral pulses, regular rate, rhythm - GASTROINTESTINAL (ABDOMEN) Abdominal Exam: normal bowel sounds, non tender (cramping has resolved), soft - GENITOURINARY Female Genitalia/Pelvic Exam: deferred Rectal Exam: hemorrhoids Hemoccult Exam: heme positive stool - LYMPHATIC Lymphatic: no adenopathy - MUSCULOSKELETAL Back Exam: normal inspection Extremity: normal range of motion, non-tender, normal inspection, no pedal edema , no calf tenderness, normal capillary refill, pelvis stable - SKIN Integumentary: normal color, normal turgor, warm/dry - NEUROLOGIC Neurologic: grossly normal, no motor/sensory deficits - PSYCHIATRIC Psych/Mental Status: normal mood/affect, normal thought content, normal thought process, oriented x 3 Progress - PLAN OF CARE/RESULTS Progress/Plan/Lab Results: Vital Signs - 8 hr 02/05/19 12:45 Temperature 97.8 F Pulse Rate 66 Respiratory Rate 16 Blood Pressure 143/80 O2 Sat by Pulse Oximetry 98 Orders Category Date Time Status CT ABD/PELVIS W/IV CONT ONLY [CT] Stat Exams 02/05/19 13:05 Ordered CBC WITH ELECTRONIC DIFF [HEME] Stat Lab 02/05/19 13:05 Uncollected COMPREHENSIVE METABOLIC PANEL [CHEM] Stat Lab 02/05/19 13:05 Uncollected OCCULT BLOOD SCREENING [STOOL] Stat Lab 02/05/19 13:05 Uncollected PROTIME WITH INR [COAG] Stat Lab 02/05/19 13:05 Uncollected PTT [COAG] Stat Lab 02/05/19 13:05 Uncollected TYPE & SCREEN [BBK] Stat Lab 02/05/19 13:05 Uncollected Result Diagrams: 02/05/19 13:15 02/05/19 13:15 - REASSESSMENT Reassessment #1 Time Reassessed: 15:40 Status: unchanged Reassessment Comment: pt is resting in bed - CT/MRI 1 CT Study: Abdomen, Pelvis Impression: See EMR Report (EXAM: CT ABD/PELVIS W/IV CONT ONLY 02/05/2019 HISTORY: colitis TECHNIQUE: This exam was performed using automated exposure control, adjustment of mA or kV according to patient size, and/or use of iterative reconstruction technique. COMMENT: There is no evidence of acute disease in the visualized portion of the chest. There are atherosclerotic calcifications throughout the aorta and there is an infrarenal abdominal aortic aneurysm measuring 2.2 cm in diameter. 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 This abnormality was also present on the previous study of 10/29/2016 at which time it measured 18 mm, and is presumably relatively stable. The iliac arteries are densely calcified. There has been cholecystectomy. There are calcified granulomata in the spleen. The adrenal glands are stable in appearance. The pancreas has not changed significantly in appearance. There is stool throughout the colon. There is no evidence of mucosal thickening. The small bowel is not distended. There is no evidence of significant adenopathy. Pelvis: There is diverticulosis in the sigmoid colon without evidence of acute diverticulitis. There has been hysterectomy. The urinary bladder is slightly distended. There is no evidence of free fluid. There is no evidence of acute bony abnormality. IMPRESSION: Constipation and diverticulosis coli. No evidence of active diverticulitis or colitis. Electronically signed by Bishnu Trejo 02/05/2019 3:21 PM 02/05/19 1521 Interpreting Physician: Bishnu Trejo MD Dictated Date/Time: 02/05/19 1512 cc: Chris Stanton MD; Jag Jackson MD) - CONSULTS/PCP/HOSPITALIST Notification #1 *Consult/PCP/Hospitalist*: hospitalist service Time Discussed: 15:50 Consult Disposition: Admit Departure - Departure Date of Disposition Decision: 02/05/19 Time of Disposition Decision: 15:50 DIAGNOSIS: GI bleed Qualifiers: GI bleed type/associated pathology: unspecified gastrointestinal hemorrhage type Qualified Code(s): K92.2 - Gastrointestinal hemorrhage, unspecified Disposition: ADMITTED INPATIENT 09 Certified Medical Emergency: Emergent Condition: Stable - Critical Care Note This patient required my direct & personal management of CC.: Yes Total Time (mins): 33 Critical Care Statement: This patient required my direct personal management to treat or rule out processes, the absence of which, could potentiallly result in sudden, clinically significant life or limb threatening deterioration. Attestation - Physician/ MCKAY Attestation Patient care was provided by Advanced Practice Provider:: No The physician spent face to face time with patient:: Yes Advanced Practice Provider documentation review:: Supervising physician onsite and consulted in the evaluation and care of this patient. The physician did have a face to face encounter with the patient. This chart was documented by the indicated scribe, (Chloe Price Scribe) and accurately reflects the services I performed and decisions made by me, Chris Stanton MD, as attested by the provider's signature.
--- NOTE | 2019-02-05 18:50 | HISTORY AND PHYSICAL ---
PRIMARY CARE PROVIDER: Dr. Jag Jackson. CHIEF COMPLAINT: Bloody stool. HISTORY OF PRESENT ILLNESS: Ms. Shavon Braden is an 83-year-old female with a medical history of coronary artery disease and cardiac stents, for which she takes aspirin and Plavix, and also with a medical history of hiatal hernia, GERD, diverticulosis/diverticulitis, diabetes, and COPD. Her last colonoscopy was completed in [address] Leung. She is now here with complaints of a rectal bleed. She states around 12 o'clock today she filled the toilet up 3 times with a large amount of bright red blood. She had abdominal pain across the right lower and left lower quadrants. Denied any dizziness. Currently she denies any abdominal pain, but with palpation she still feels tender in the left lower quadrant. She had a CT which showed that she had constipation and diverticulosis. The patient does state from time to time she has hemorrhoids that will occasionally bleed, but this was completely different. Her hemoglobin and hematocrit are stable. Her vital signs are stable. Will monitor her in the [facility] overnight and transfer her to the floor if she is okay. Gastroenterology has been consulted. She will have a clear liquid diet, and they will follow up with her tomorrow. PAST MEDICAL HISTORY: 1. Chronic pain syndrome due to arthritis in her neck, for which she goes to a pain clinic and takes Esmond. 2. Coronary artery disease with 2 cardiac stents, the last being in 2018, on Plavix and aspirin. 3. Congestive heart failure. 4. Hypertension. 5. Hyperlipidemia. 6. COPD. 7. Diverticulosis. 8. Polyps. 9. Diverticulitis. 10.Diabetes mellitus type 2. 11.Hypothyroidism. 12.History of skin cancer. 13.CKD which honestly looks like it has resolved. PAST SURGICAL HISTORY: 1. Colonoscopy [place] [address] Leung. 2. Appendectomy. 3. Cholecystectomy. 4. Cardiac stenting. 5. Hysterectomy. 6. Bilateral tubal ligation. 7. Tonsillectomy. 8. PTCA x2 stents, with the last being in 2018. SOCIAL HISTORY: Denies tobacco, alcohol or illicit drug use. She lives at home with, I believe, her . FAMILY HISTORY: Mother and father both have heart problems. Apparently heart problems were all in the family, but that was all the detail she could give. ALLERGIES: Penicillin causes hives. HOME MEDICATIONS: Still have not been verified, but she personally told me she is on Plavix and aspirin. REVIEW OF SYSTEMS: A 14-point review of systems is completed, and all are negative except for those mentioned above in the HPI. PHYSICAL EXAMINATION: VITAL SIGNS: Temperature 97.8, heart rate 65, respiratory rate 18, blood pressure 124/65, O2 saturation 95% on room air. GENERAL: Ms. Shavon Braden is an 83-year-old female. She is in no acute distress. She is able to answer questions appropriately. HEENT: Atraumatic, normocephalic. Pupils equal, round, and reactive to light. Extraocular movements intact. Mucous membranes are dry. NECK: Trachea midline. CARDIOVASCULAR: S1 and S2, regular rate and rhythm. No rubs, gallops, or murmurs. No lower extremity edema. Has +2 dorsalis and radial pulses. Negative JVD or carotid bruits. PULMONARY: Clear to auscultate. Bilateral breath sounds. No accessory muscle use or work of breathing noted. GI: Soft, nontender, but tender in the left lower quadrant with palpation. Nondistended. Positive bowel sounds x4. EXTREMITIES: Moves all extremities equally. Full range of motion. NEUROLOGIC: A O x3. Follows commands. Sensory is intact. SKIN: Warm, dry and intact. LABORATORY DATA: White blood cells 6000, hemoglobin 13, hematocrit 40, platelet count 176. INR 0.91, PTT 28.8. Sodium is 136, potassium 4.5, BUN 14, creatinine 0.9, glucose 178. Calcium 8.4, bilirubin 0.27. AST 36, ALT 23. Albumin 3.5. IMAGING: Abdominopelvic CT: Constipation with diverticulosis coli. ASSESSMENT/PLAN: 1. Rectal bleed with stable hemoglobin and hematocrit and stable vital signs. No more rectal bleeding since 12 noon today. She got a 1-time dose of Nexium IV. We will put her on a clear liquid diet. Will consult Gastroenterology and hold her Plavix and aspirin for now. 2. Constipation. Will add some Meena-Colace to her medication regimen. If she is going to have a colonoscopy, she will end up getting something that will help her clear her colon as well. 3. History of diverticulitis and diverticulosis, hiatal hernia, gastroesophageal reflux disease and polyps. All of these are stable for now. 4. Chronic obstructive pulmonary disease. No exacerbation. 5. Diabetes mellitus type 2. Will do pattern blood glucoses and sliding-scale insulin. 6. Hypothyroidism. Will continue Synthroid once dosing is verified. 7. Coronary artery disease. Holding aspirin for the moment, and the Plavix as well. She denies any chest pain. Will continue statin once it is verified. 8. Hyperlipidemia, awaiting her statin dosing. 9. Chronic pain syndrome due to arthritis in her neck. She goes to a pain clinic for this. She states she takes Esmond. Again, once her medications are verified, will resume this. 10.Deep venous thrombosis prophylaxis with sequential compression devices. Dictated by NOVA Azul for Chai Alfaro MD Addendum: Patient seen and examined by myself. Agree with NOVA note. It reflects my assessment and plan. Patient is being admitted to hospital for rectal bleeding. Will check CBC daily, consult GI and transfuse if needed. cc: NOVA Azul MD John V. Irle, MD MTDD
[2019-02-05] MEDS: HUMULIN R SUBQ SCH (20:55)
[2019-02-05] MEDS: PRILOSEC PO SCH (21:00)
[2019-02-06 05:40] LABS: BASO# 0.02 X1000 (0.0-0.2); BASO% 0.3 % (0.0-0.8); EOS# 0.17 X1000 (0.0-0.7); EOS% 2.2 % (0.0-10.0); HEMATOCRIT 43.3 % (37.0-47.0); HEMOGLOBIN 14.7 g/dL (12.0-16.0); IMM GRAN# 0.02 X1000 (0.0-0.04); IMM GRAN% 0.3 % (0.0-0.5); LYMPH# 2.14 X1000 (1.2-3.4); LYMPH% 28.2 % (20.5-51.1); MCHC 33.9 g/dL (33-37); MCV 91.4 FL (81-99); MONO# 0.58 X1000 (0.11-0.59); MONO% 7.6 % (1.7-9.3); MPV 10.8 FL (7.4-10.4); NEUT# 4.66 X1000 (1.4-6.5); NEUT% 61.4 % (42.2-75.2); PLT 181 X1000 (130-400); RBC 4.74 XMIL (4.2-5.4); RDW 12.6 % (11.5-14.5); WBC 7.59 X1000 (4.8-10.8)
[2019-02-06 06:00] LABS: INR 0.94; PROTIME 13.3 Seconds (11.0-16.0)
[2019-02-06 06:01] LABS: PTT 29.9 Seconds (22.3-41.8)
[2019-02-06] MEDS: HUMULIN R SUBQ SCH (06:11)
[2019-02-06 06:25] LABS: AGAP 11; ALB/GLOB RATIO 1.5; ALBUMIN 3.9 g/dL (3.5-5.0); ALKALINE PHOSPHATASE 78 U/L (32-104); BUN 11 mg/dL (8-22); CALCIUM 9.4 mg/dL (8.8-10.2); CHLORIDE 101 mmol/L (98-107); COSMO 280; CREATININE 0.7 mg/dL (0.5-0.9); ESTIMATED GFR > 60; GLUCOSE 88 mg/dL (70-104); GOT 31 U/L (10-30); GPT 25 U/L (10-36); POTASSIUM 3.8 mmol/L (3.5-5.1); SODIUM 141 mmol/L (136-145); TCO2 29 mmol/L (25-35); TOTAL BILIRUBIN 0.47 mg/dL (0.20-1.00); TOTAL PROTEIN 6.5 g/dL (6.3-8.3)
[2019-02-06 07:48] VITALS: BP 150/63
[2019-02-06] MEDS: PRILOSEC PO SCH (08:38)
[2019-02-06] MEDS ORDERED: PNEUMOVAX 23 IM ONE (09:38)
--- NOTE | 2019-02-06 15:16 | GASTROENTEROLOGY CONSULTATION ---
DATE: 02/06/2019 REASON FOR CONSULTATION: Rectal bleeding. HISTORY OF PRESENT ILLNESS: Ms Shavon Braden is an 83-year-old woman with past medical history of coronary artery disease status post stents on aspirin and Plavix, COPD, CHF, hypertension, hyperlipidemia, history of sarcoidosis, colonic polyps, history of diverticulitis and diverticulosis, noninsulin dependent diabetes, who presents with 1 episode of bright red blood per rectum after having a bowel movement. She has a known history of hemorrhoids that occasionally cause irritation and rarely bleeding. She notes drops of blood coming from her rectum overnight. She presented here with these complaints. She denies any other associated symptoms except for some mild abdominal cramping. She believes she may have been straining at the time that she saw the bleeding. No melena. No NSAIDs. Her last colonoscopy was done by Dr. Leung in 2018. REVIEW OF SYSTEMS: As per HPI, otherwise 12 point review of systems is negative. PAST MEDICAL HISTORY: As per HPI. Other history includes hypothyroidism, history of skin cancer, CKD, chronic pain on [place]. PAST SURGICAL HISTORY: Appendectomy, cholecystectomy, hysterectomy, bilateral tubal ligation, tonsillectomy. SOCIAL HISTORY: No smoking, alcohol or drug use. FAMILY HISTORY: Father may have had colon cancer. Otherwise, no significant GI history. ALLERGIES: Penicillin causes hives. HOME MEDICATIONS: Have not been verified in the chart. She does take aspirin and Plavix. PHYSICAL EXAMINATION: Vital Signs: Temperature 98.4 degrees, heart rate 63, respiratory 18, blood pressure 150/63, O2 saturation 100% on room air. General: Patient is awake, alert, oriented, in no acute distress. Frail, elderly. HEENT: Sclerae anicteric. Moist mucous membranes. Neck: Supple. No JVD. Lungs: Clear to auscultation bilaterally. No wheezing. Abdomen: Soft, nontender, nondistended. Normoactive bowel sounds. No rebound or guarding. Extremities: No clubbing, cyanosis, or edema. Rectal Exam: Notable for external hemorrhoids as well as inflamed prolapsed small hemorrhoids. Digital rectal exam was notable for scant pink mucus and brown solid stool in the rectal vault. LABORATORY DATA: White count of 7.59, hemoglobin 14.7 from 13.8 yesterday without need for transfusion, platelets of 181,000. INR 0.94. LFTs and chemistries are within normal limits. IMAGING: CT abdomen and pelvis shows constipation with diverticulosis without diverticulitis or colitis. ASSESSMENT AND PLAN: Ms. Shavon Braden is an 83-year-old woman with past medical history of coronary artery disease on aspirin and Plavix, diverticulosis, who presents with rectal bleeding, likely from inflamed hemorrhoids. Her hemoglobin is stable. Vitals are stable. No signs of diverticular or upper GI bleeding. The patient is up-to-date with surveillance colonoscopies for colon polyps. My recommendation is for her to go home on twice a day hydrocodone suppositories twice a day for 14 days. Avoid constipation, stool softeners, high-fiber diet. Avoid straining. The patient can be discharged from a GI standpoint with outpatient follow-up. She can resume her aspirin and Plavix. Plan was discussed with patient and family as well as primary team. Please call us with any questions or concerns. We will sign off.
--- NOTE | 2019-02-07 09:39 | DISCHARGE SUMMARY ---
ADMISSION DATE: 02/05/2019 DISCHARGE DATE: 02/06/2019 ADMISSION DIAGNOSES: 1. Rectal bleed with stable hemoglobin and hematocrit and stable vital signs. 2. Constipation. 3. Diverticulitis history and diverticulosis history along with hiatal hernia, gastroesophageal reflux disease and polyps, all of which were stable. 4. Chronic obstructive pulmonary disease, no exacerbation. 5. Diabetes mellitus type 2. 6. Hypothyroidism. 7. Coronary artery disease, no chest pain but aspirin and Plavix were being held for the moment. 8. Hyperlipidemia. 9. Chronic pain syndrome due to arthritis in her neck. DISCHARGE DIAGNOSES: 1. Rectal bleed was secondary to bleeding internal and external hemorrhoids that has resolved on its own. She had received a 1 time dose of Nexium and her Plavix and aspirin were held for 1 day. 2. Constipation. She did not have any bowel movements here. It was found on imaging. 3. History of diverticulitis and diverticulosis, hiatal hernia, gastroesophageal reflux disease, polyps noted, no changes. These were all stable. 4. Chronic obstructive pulmonary disease, no exacerbation. 5. Diabetes mellitus type 2, stable. 6. Hypothyroidism. 7. Coronary artery disease. We will resume her Plavix and aspirin on discharge. 8. Hyperlipidemia. 9. Chronic pain syndrome. CONSULTATIONS: Dr. Best Temple with Gastroenterology and with his examination felt it was just bleeding from hemorrhoids because no more bleeding throughout the night. SURGERIES/PROCEDURES: None. HOSPITAL COURSE: Ms. Shavon Braden is an 83-year-old female who around 12:00 yesterday prior to being admitted states that she had 3 very large spells of rectal bleeding close to each other, essentially filled the toilet up. She said this was not normal compared to her usual trace blood that she has sometimes when wiping due to hemorrhoids. She presents with stable vital signs and stable hemoglobin and hematocrit. The occult stool is positive for blood. So, she was placed on clear liquids through the night. Dr. Temple evaluated and felt like it was all due to hemorrhoids because she did not continue to have any more bleeding. She was going to be sent home on some Anusol. DISCHARGE VITAL SIGNS: Temperature 98.4 degrees, heart rate 63, respiratory rate 18, blood pressure 150/63, O2 saturation 100% on room air. DISCHARGE LABORATORY DATA: White blood cells 7,000, hemoglobin 14, hematocrit 43, platelet count 181,000. INR is 0.94. PTT is 29.9. Sodium 141, potassium 3.8, BUN 11, creatinine 0.7, glucose 88. Calcium 9.4. Bilirubin 0.47. AST 31, ALT 25, albumin is 3.9. PERTINENT IMAGING: She had abdominal and pelvic CT that showed constipation, diverticulosis. DISCHARGE MEDICATIONS: I believe she was discharged on her home meds but they were never really reconciled while she was here. What she is getting new to go home with is Anusol to apply twice a day for 7 days. OTHER HOME MEDICATIONS: 1. Atenolol 50 mg p.o. nightly. 2. Simvastatin 40 mg p.o. nightly. 3. Lactobacillus. 4. Aspirin 81 mg p.o. daily. 5. Glipizide 5 mg p.o. twice daily. 6. Imdur 30 mg p.o. daily. 7. Imipramine 20 mg p.o. nightly. 8. Lasix 20 mg p.o. daily. 9. Nitroglycerin sublingual p.r.n. 10.Plavix 75 mg p.o. daily. 11.Spironolactone 50 mg p.o. daily. 12.Docusate sodium 30 mg p.o. daily. 13.Carafate 1 gram p.o. twice a day. 14. Synthroid 50 mcg daily. DISCHARGE DIET: Regular. ACTIVITY: None. DISCHARGE INSTRUCTIONS: Take all prescribed medication as directed. Return to the emergency department for any new or worsening symptoms. May call the physician referral number at to obtain a list of physicians who are taking new patients. If her condition changes, contact her physician and/or return to the emergency department. Changes may include but are not limited to shortness of breath, increased fatigue, excessive bleeding, unexplained weight loss or gain, unmanageable pain, signs or symptoms of infection. DISCHARGE FOLLOWUP: Physician followup, Dr. Jackson. DISCHARGE DISPOSITION: Home. Dictated by NOVA Azul for Chai Alfaro MD Addendum: Patient seen and examined by myself. Agree with NOVA. It reflects my assessment and plan. Patient is being discharged in stable condition. Will be seen by primary care doctor in a week. cc: NOVA Azul MD [facility]
== END 2019-02-06 10:36 | disposition home or self-care (01) | DRG 192 ==
LOC: ED 12:42 → EDIPHOLD 16:25 → 3S 22:10
PROVIDERS: ATTEND Internal Medicine
CPT/HCPCS: 74177; 80053; 82270; 82948; 83735; 85025; 85610; 85730; 86850; 86900; 86901; 90732; 94761; 94799; 96374; 99285; A9270; J7030; Q9967; XXXXX

== ENCOUNTER 2019-03-09 16:13 | Inpatient (IN) ==
[2019-03-09] MEDS ORDERED: NS 1,000 ML IV ONE (16:51)
[2019-03-09 17:35] LABS: BASO# 0.02 X1000 (0.0-0.2); BASO% 0.1 % (0.0-0.8); HEMATOCRIT 43.4 % (37.0-47.0); IMM GRAN# 0.15 X1000 (0.0-0.04); IMM GRAN% 1.1 % (0.0-0.5); LYMPH# 1.85 X1000 (1.2-3.4); LYMPH% 13.8 % (20.5-51.1); MCH 30.9 PG (27-31); MCHC 34.6 g/dL (33-37); MCV 89.3 FL (81-99); MONO# 1.28 X1000 (0.11-0.59); MONO% 9.5 % (1.7-9.3); MPV 10.8 FL (7.4-10.4); NEUT# 10.15 X1000 (1.4-6.5); NEUT% 75.5 % (42.2-75.2); PLT 171 X1000 (130-400); RBC 4.86 XMIL (4.2-5.4); RDW 12.6 % (11.5-14.5); WBC 13.45 X1000 (4.8-10.8)
[2019-03-09 18:00] LABS: AGAP 10; ALBUMIN 4.1 g/dL (3.5-5.0); ALKALINE PHOSPHATASE 81 U/L (32-104); BUN 13 mg/dL (8-22); CALCIUM 9.6 mg/dL (8.8-10.2); CHLORIDE 100 mmol/L (98-107); CK PROFILE 30 U/L (24-173); COSMO 272; CREATININE 0.5 mg/dL (0.5-0.9); ESTIMATED GFR > 60; GLUCOSE 134 mg/dL (70-104); GOT 43 U/L (10-30); GPT 71 U/L (10-36); POTASSIUM 4.4 mmol/L (3.5-5.1); SODIUM 135 mmol/L (136-145); TCO2 25 mmol/L (25-35)
[2019-03-09 18:14] LABS: INR 1.18; PROTIME 15.6 Seconds (11.0-16.0)
[2019-03-09 18:15] LABS: PTT 28.9 Seconds (22.3-41.8)
[2019-03-09] MEDS ORDERED: LEVAQUIN 750 MG/D5W 750 MG/150 ML IVPB IV ONE (18:47)
--- NOTE | 2019-03-09 18:52 | PROVIDER DOCUMENTATION ---
This chart was entered by Vonda Fairchild Scribe, acting as scribe for Harrison Ferreira MD. HPI-Respiratory General - General Chief Complaint: Shortness of Breath Stated Complaint: SOB Time Seen by Provider: 03/09/19 16:43 Source: patient Allergies/Adverse Reactions: Patient Allergies Allergy/AdvReac Type Severity Reaction Status Date / Time Penicillins Allergy Intermediate RASH Verified 11/15/18 11:30 Home Medications: Home Medication List Medication Instructions Recorded Confirmed Last Taken Type Aspirin 81 mg PO DAILY 08/18/13 11/18/18 01/14/17 08:00 History Clopidogrel [Plavix] 75 mg PO DAILY 08/18/13 11/18/18 01/14/17 09:00 History Glipizide 5 mg PO BID 08/18/13 11/18/18 01/14/17 08:00 History Isosorbide Mononitrate E.r. [Imdur] 30 mg PO DAILY 08/18/13 11/18/18 01/14/17 09:00 History Levothyroxine [Synthroid] 50 microgm PO DAILY@0700 08/18/13 11/18/18 10/28/16 09:00 History Hydrocodone/Acetaminophen [[place] 1 each PO Q8HR PRN 04/20/17 11/18/18 Unknown History 10-325 Tablet] Atenolol 50 mg PO QHS 02/10/18 11/18/18 Unknown History Lactobacillus Acidophilus 1 each PO DAILY 02/10/18 11/18/18 Unknown History [Acidophilus Lactobacilli] Nitroglycerin Sl [Nitroglycerin] 0.4 mg SL PRN PRN 02/10/18 11/18/18 Unknown History SIMVAstatin [Zocor] 40 mg PO QHS 02/10/18 11/18/18 Unknown History Spironolactone 50 mg PO DAILY 02/10/18 11/18/18 Unknown History Furosemide [Lasix] 20 mg PO DAILY 02/16/18 11/18/18 Unknown History Docusate Sodium [Stool Softener] 100 mg PO DAILY 06/04/18 11/18/18 Unknown History Imipramine HCl 20 mg PO HS 08/25/18 11/18/18 Unknown History Albuterol 2.5MG/Ipratrop 0.5MG 3 ml INH Q4H PRN PRN #180 neb 08/29/18 11/18/18 Unknown Rx [Duoneb (A & A)] Sucralfate 1 gm PO BID 11/18/18 11/18/18 Unknown History - History of Present Illness-Resp Nature of Presenting Problem: [id number] presents to ED cc SOB with mild cough since yesterday and low grade fever last night. Pt has hx of HTN, COPD, CHF and sarcoidosis. Pt is non-toxic in appearance. Quality of Pain: reports: aching Severity in ED: reports: mild Onset/Duration: reports: 24 hours ago Timing: reports: still present Cough Quality/Degree: reports: mild Episode Frequency: no prior episodes Current Respiratory Medication Therapy: Initiated see nurses note Modifying Factors: improves with: nothing Associated Symptoms: reports: cough, shortness of breath Similar Symptoms Previously?: No Recently seen or treated by another doctor?: No Review of Systems - Adult - REVIEW OF SYSTEMS - ADULT Constitutional: reports: see HPI, fever (last night), fatique. denies: chills Eyes: reports: no symptoms reported Ears, Nose, Mouth & Throat: reports: no symptoms reported Cardiovascular: reports: no symptoms reported Respiratory: reports: see HPI, cough, shortness of breath. denies: wheezing Gastrointestinal: reports: no symptoms reported Genitourinary: reports: no symptoms reported Musculoskeletal: reports: no symptoms reported Integumentary: reports: no symptoms reported Neurological: reports: no symptoms reported Psychiatric: reports: no symptoms reported Endocrine: reports: no symptoms reported Hematologic/Lymphatic: reports: no symptoms reported Allergic/Immunologic: reports: no symptoms reported All Other Systems: Reviewed and Negative Past History - Adult - PAST MEDICAL HISTORY-ADULT Review of Records: reports: Nursing Assessment Review, Medications Reviewed, Social history reviewed & non-contributory. Major Childhood Illnesses: reports: denies history Cardiovascular: reports: CAD, CHF, HTN, hyperlipidemia Respiratory: reports: COPD Gastrointestinal: reports: diverticulosis, polyps Obstetrical/Gynecological: reports: denies history Genitourinary: reports: kidney disease Musculoskeletal: reports: denies history, arthritis Neurological: reports: denies history Psychiatric: reports: denies history Endocrine/Immune: reports: Diabetes, thyroid disorder Other Conditions: reports: other cancer (skin), other (renal disease) - PRIOR SURGERIES/PROCEDURES Surgical/Procedure History: reports: recent surgery (01/27/18), appendectomy, cholecystectomy, cardiac stent, hysterectomy, BTL, tonsillectomy, other (ectopic ; vocal chords) - PRIOR HOSPITALIZATIONS Prior Hospitalizations: reports: none - IMMUNIZATION STATUS Childhood Immunizations: See Nurse Assessment Flu Vaccine: See Nurse Assessment - FAMILY HISTORY Family History: reviewed, not pertinent Physical Exam-General - PHYSICAL EXAM-ADULT Initial Vital Signs Reviewed: Yes - CONSTITUTIONAL General Appearance: appears well, alert, no apparent distress. negative: anx ious, combative - EYES Eyes: PERRL/EOMI, pink conjunctivae. negative: meningismus, pale conjunctivae, photophobia - HEAD, EARS, NOSE, MOUTH & THROAT HENMT: normocephalic/atraumatic, moist mucous membranes, normal ENT inspection. negative: angioedema, dental decay, hearing deficit - NECK Neck: non-tender, full range of motion, supple, normal inspection. negative: Brudzinski's sign, carotid bruit, C-spine tenderness - RESPIRATORY Respiratory: chest non-tender, lungs clear, normal breath sounds, no pleuratic chest pain, no respiratory distress, no accessory muscle use. negative: crackles, rales, rhonchi, wheezing - CARDIOVASCULAR Cardiovascular: normal peripheral pulses, regular rate, rhythm, no edema, no gallop, no JVD, systolic murmur (2/6 upper right sternal border). negative: bradycardia, tachycardia - GASTROINTESTINAL (ABDOMEN) Abdominal Exam: normal bowel sounds, non tender, soft. negative: distended, guarding, rigid, rebound, tenderness - LYMPHATIC Lymphatic: no adenopathy. negative: enlargement, striations, streaking - MUSCULOSKELETAL Back Exam: normal inspection, no CVA tenderness, no vertebral tenderness. negative: swelling Extremity: normal range of motion, non-tender, normal gait, normal inspection, no pedal edema, no calf tenderness, normal capillary refill, pelvis stable. negative: deformity, erythema - SKIN Integumentary: normal color, normal turgor, warm/dry. negative: cyanosis, diaphoresis, erythema, jaundice - NEUROLOGIC Neurologic: curbstone setter II-XII nml as tested, grossly normal, no motor/sensory deficits. negative: facial droop, focal weakness - PSYCHIATRIC Psych/Mental Status: normal mood/affect, normal thought content, normal thought process, oriented x 3. negative: disoriented x 3, anxious, disheveled, depressed affect Progress - PLAN OF CARE/RESULTS Progress/Plan/Lab Results: Vital Signs - 8 hr 03/09/19 16:25 Temperature 98.2 F Pulse Rate 74 Respiratory Rate 22 Blood Pressure 161/72 O2 Sat by Pulse Oximetry 98 Laboratory Results - last 24 hr 03/09/19 03/09/19 03/09/19 17:18 17:18 17:18 WBC 13.45 H RBC 4.86 Hgb 15.0 Hct 43.4 MCV 89.3 MCH 30.9 MCHC 34.6 RDW Std Deviation 12.6 Plt Count 171 MPV 10.8 H Immature Gran % (Auto) 1.1 H Neut % (Auto) 75.5 H Lymph % (Auto) 13.8 L [place] % (Auto) 9.5 H Eos % (Auto) 0.0 Baso % (Auto) 0.1 Immature Gran # (Auto) 0.15 H Neut # (Auto) 10.15 H Lymph # (Auto) 1.85 [place] # (Auto) 1.28 H Eos # (Auto) 0.00 Baso # (Auto) 0.02 PT INR PTT (Actin FS) Sodium 135 L Potassium 4.4 Chloride 100 Carbon Dioxide 25 Anion Gap 10 BUN 13 Creatinine 0.5 Estimated GFR/1.73 m2 > 60 BUN/Creatinine Ratio 26 Glucose 134 H Calculated Osmolality 272 Calcium 9.6 Total Bilirubin 1.00 AST 43 H ALT 71 H Alkaline Phosphatase 81 Creatine Kinase 30 Troponin T [id number]-[id number] Pept 3252 H Total Protein 8.0 Albumin 4.1 Globulin 4.0 Albumin/Globulin Ratio 1.0 Plasma Lactate 03/09/19 03/09/19 03/09/19 17:18 17:18 17:54 WBC RBC Hgb Hct MCV MCH MCHC RDW Std Deviation Plt Count MPV Immature Gran % (Auto) Neut % (Auto) Lymph % (Auto) [place] % (Auto) Eos % (Auto) Baso % (Auto) Immature Gran # (Auto) Neut # (Auto) Lymph # (Auto) [place] # (Auto) Eos # (Auto) Baso # (Auto) PT 15.6 INR 1.18 PTT (Actin FS) 28.9 Sodium Potassium Chloride Carbon Dioxide Anion Gap BUN Creatinine Estimated GFR/1.73 m2 BUN/Creatinine Ratio Glucose Calculated Osmolality Calcium Total Bilirubin AST ALT Alkaline Phosphatase Creatine Kinase Troponin T < 0.010 Eat-S-Yihegdtqifp Pept Total Protein Albumin Globulin Albumin/Globulin Ratio Plasma Lactate 1.4 Orders Category Date Time Status Cardiac Monitoring DIRECTED Care 03/09/19 16:44 Active Oxygen Therapy- ED Nursing DIRECTED Care 03/09/19 16:44 Active Saline Loc NOW Care 03/09/19 16:44 Active CHEST-2 VIEWS [RAD] Stat Exams 03/09/19 16:44 Completed BLOOD CULTURE [BLDCUL] Stat Lab 03/09/19 17:24 Ordered CBC WITH ELECTRONIC DIFF [HEME] Stat Lab 03/09/19 17:18 Completed CK PROFILE [SP CHEM] Stat Lab 03/09/19 17:18 Completed COMPREHENSIVE METABOLIC PANEL [CHEM] Stat Lab 03/09/19 17:18 Completed LACTATE, PLASMA [CHEM] Stat Lab 03/09/19 17:18 Completed PRO B-NATRIURETIC PEPTIDE Stat Lab 03/09/19 17:18 Completed PROTIME WITH INR [COAG] Stat Lab 03/09/19 17:54 Completed PTT [COAG] Stat Lab 03/09/19 17:54 Completed TROPONIN T Stat Lab 03/09/19 17:18 Completed 0.9% Sodium Chloride Inj [Ns] 1,000 ml Med 03/09/19 16:51 Discontinued IV 999 mls/hr Levofloxacin 750 mg/D5w [Levaquin 750 mg/D5w] Med 03/09/19 18:47 Active 750 mg in 150 ml IV NOW CP/SOB/Palp >45 yrs of Age Stat Oth 03/09/19 16:44 Ordered EKG [EKG] Stat Ther 03/09/19 16:31 Ordered Result Diagrams: 03/09/19 17:18 03/09/19 17:18 - REASSESSMENT Reassessment #1 Time Reassessed: 18:46 Status: improving (Given neb treatments and iv levaquin) - EKG 1 Time of EKG reading by physician:: 16:44 EKG Read and Signed by:: Harrison Ferreira EKG Interpretation (*Must complete 3 of following elements*): Abnormal (prolonged QT) Rate: 70 Rhythm: normal sinus QRS: other (unusual p axis, possible ectopic atrial rhythm) ST Wave: non-specific ST changes - CONSULTS/PCP/HOSPITALIST Notification #1 *Consult/PCP/Hospitalist*: Leila sanchez at 1947 Departure - Departure Date of Disposition Decision: 03/09/19 Time of Disposition Decision: 18:47 DIAGNOSIS: Right lower lobe pneumonia Qualifiers: Pneumonia type: due to unspecified organism Qualified Code(s): J18.1 - Lobar pneumonia, unspecified organism CHF (congestive heart failure) Qualifiers: Heart failure type: combined systolic and diastolic Heart failure chronicity: acute on chronic Qualified Code(s): I50.43 - Acute on chronic combined systolic (congestive) and diastolic (congestive) heart failure Disposition: ADMITTED INPATIENT 09 Certified Medical Emergency: Emergent Condition: Fair Referrals and Follow-Ups: None,PCP [Primary Care Provider] - - Critical Care Note This patient required my direct & personal management of CC.: No Attestation - Physician/ MCKAY Attestation Patient care was provided by Advanced Practice Provider:: No The physician spent face to face time with patient:: Yes Advanced Practice Provider documentation review:: Supervising physician onsite and consulted in the evaluation and care of this patient. The physician did have a face to face encounter with the patient. This chart was documented by the indicated scribe, (Vonda Fairchild Scribe) and accurately reflects the services I performed and decisions made by me, Harrison Ferreira MD, as attested by the provider's signature.
--- NOTE | 2019-03-09 18:55 | Diag Imaging Result Doc PS360 ---
EXAM: CHEST-2 VIEWS 03/09/2019 HISTORY: sob TECHNIQUE: PA and lateral chest COMMENT: Compared to 08/30/2018, the pleural effusion on the left has improved. The patchy opacities over the left upper chest are also improved. There is slightly more hazy opacity over the right lower lobe. The coarse opacities previously present in the left lower lobe have improved. IMPRESSION: Waxing and waning pulmonary opacities which may indicate pneumonia. Improved left pleural fluid collection. Electronically signed by Bishnu Trejo 03/09/2019 6:52 PM
[2019-03-09] MEDS ORDERED: LEVAQUIN PO SCH (19:15)
--- NOTE | 2019-03-09 21:11 | HISTORY AND PHYSICAL ---
CHIEF COMPLAINT: Shortness of breath. HISTORY OF PRESENT ILLNESS: The patient is an elderly female who presented to the hospital with increased cough, congestion, increased work of breathing. Notes that she should have been in the hospital two days ago, but thought she was going to get better. Interestingly, her is actually right next door also with pneumonia. Notes that she has had low-grade fevers and mild productive cough. Has had some shortness of breath, but nothing severe. ALLERGIES: Penicillin causing rash. MEDICATIONS: Aspirin 81, Plavix 75 daily, glipizide 5 b.i.d., Imdur 30 daily, Synthroid 50, hydrocodone p.r.n., Lasix and nebulized treatments. REVIEW OF SYSTEMS: As noted above. Positive low-grade fevers, chills. Positive cough mildly productive, increased work of breathing on activity, but denies any pedal edema. Denies nausea, vomiting, diarrhea, constipation, melena, hematochezia. Denies any weight loss. Denies skin rashes. PAST MEDICAL HISTORY: Significant for congestive heart failure, diverticulosis, known coronary artery disease, hyperglycemia, hypertension, COPD, diabetes and a history of skin cancer. History of hypothyroidism. SURGICAL HISTORY: Significant for appendectomy, cholecystectomy, cardiac stenting, hysterectomy, BTL, tonsillectomy. PHYSICAL EXAMINATION: VITAL SIGNS: Reviewed. She is afebrile. Blood pressure is stable. Temperature 98.2, pulse 74, respiratory 22, BP 161/72. Saturating 98% on room air. GENERAL: Patient is awake, alert. Currently in no respiratory distress. HEENT: Normocephalic. NECK: Supple. CARDIOVASCULAR: Regular rate. No murmurs. CHEST: Decreased but equal breath sounds. No wheezing, no crackles. ABDOMEN: Soft, nondistended, nontender. EXTREMITIES: Moves all extremities. NEUROLOGIC: No focal changes. LABORATORY: WBC 13. Glucose 134. ASSESSMENT: 1. Right lower lobe pneumonia. 2. Diabetes. 3. Hypertension. 4. Congestive heart failure, systolic. Not currently in exacerbation. 5. Chronic obstructive pulmonary disease, without exacerbation. PLAN: We will continue patient in the hospital on IV antibiotics, Levaquin. We will place her on oxygen, use breathing treatments if needed. Restart her home medications. Further orders as needed. cc: Hipolito Dee MD [facility]
[2019-03-10 06:18] LABS: HEMATOCRIT 41.3 % (37.0-47.0); MCH 30.4 PG (27-31); MCHC 33.9 g/dL (33-37); MCV 89.6 FL (81-99); RBC 4.61 XMIL (4.2-5.4); RDW 12.5 % (11.5-14.5); WBC 12.31 X1000 (4.8-10.8)
[2019-03-10 06:43] LABS: AGAP 9; ALBUMIN 3.7 g/dL (3.5-5.0); ALKALINE PHOSPHATASE 72 U/L (32-104); BUN 12 mg/dL (8-22); CALCIUM 9.1 mg/dL (8.8-10.2); CHLORIDE 103 mmol/L (98-107); COSMO 273; CREATININE 0.5 mg/dL (0.5-0.9); ESTIMATED GFR > 60; GLUCOSE 130 mg/dL (70-104); GOT 24 U/L (10-30); GPT 50 U/L (10-36); POTASSIUM 4.5 mmol/L (3.5-5.1); SODIUM 136 mmol/L (136-145); TCO2 24 mmol/L (25-35); TOTAL PROTEIN 6.6 g/dL (6.3-8.3)
--- NOTE | 2019-03-10 07:09 | Diag Imaging Result Doc PS360 ---
EXAM: CHEST-2 VIEWS HISTORY: Pneumonia TECHNIQUE: Chest two views COMPARISON: 03/09/2019 FINDINGS: The lungs are hyperexpanded. The pulmonary vessels are small. No cardiomegaly. Mild increased interstitial markings in the upper left lung and right lung base. The overall appearance is similar to the prior exam. There calcified hilar and mediastinal lymph nodes. Prominent atherosclerosis. IMPRESSION: Stable chest. Electronically signed by Sharad Goss 03/10/2019 7:07 AM
[2019-03-10] MEDS: LEVAQUIN PO SCH (09:18)
[2019-03-10 10:20] LABS: BILIRUBIN URINE NEGATIVE (NEGATIVE); BLOOD URINE TRACE (NEGATIVE); GLUCOSE URINE NEGATIVE (NEGATIVE); KETONE URINE NEGATIVE (NEGATIVE); LEUKOCYTES URINE 1+ (NEGATIVE); NITRITE URINE NEGATIVE (NEGATIVE); PH URINE 6.5; PROTEIN URINE TRACE mg/dL (NEGATIVE); SP GRAVITY URINE 1.015; URINE BACTERIA 1+ /HFP; URINE EPITHELIAL CELLS >10 /HPF (<10); URINE RBC <10 /HPF (<10); URINE YEAST NONE SEEN /HPF; UROBILINOGEN URINE 1 mg/dL
[2019-03-10 10:21] LABS: CLARITY CLEAR (CLEAR); COLOR YELLOW; URINE CAST NONE SEEN /LPF; URINE CRYSTAL NONE SEEN /HPF; URINE SMALL ROUND CELLS RENAL PRESENT; URINE SOURCE CLEAN CATCH
--- NOTE | 2019-03-10 10:33 | EKG Report ---
Test Performed on : 03/09/2019 4:40:42 PM Test Reason : SOB Blood Pressure : / mmHG Vent. Rate : 070 BPM Atrial Rate : 070 BPM P-R Int : 208 ms QRS Dur : 082 ms QT Int : 436 ms P-R-T Axes : -63 080 086 degrees QTc Int : 470 ms Unusual P axis, possible ectopic atrial rhythm. Nonspecific ST and T wave abnormality Prolonged QT Abnormal ECG When compared with ECG of 17-NOV-2018 14:17, Ectopic atrial rhythm. has replaced Sinus rhythm. T wave inversion no longer evident in Inferior leads Nonspecific T wave abnormality has replaced inverted T waves in Lateral leads QT has lengthened Confirmed by Best Ortega MD ([id number]) on 03/12/2019 2:28:13 AM
[2019-03-10] MEDS ORDERED: NITROGLYCERIN SL PRN (11:43)
[2019-03-10] MEDS ORDERED: PHENERGAN PO PRN (11:43)
[2019-03-10] MEDS: NORCO-10 PO PRN (12:24)
[2019-03-10] MEDS: NORVASC PO SCH ×2 (12:25→21:24)
[2019-03-10] MEDS: DUONEB (A & A) INH PRN (15:39)
[2019-03-10] MEDS: ZOCOR PO SCH (21:24)
[2019-03-10] MEDS: IMDUR PO SCH (21:24)
[2019-03-10] MEDS: ALDACTONE PO SCH (21:24)
[2019-03-10] MEDS: TENORMIN PO SCH (21:24)
[2019-03-10] MEDS: GLUCOTROL PO SCH (21:25)
[2019-03-10] MEDS ORDERED: BLISTEX MEDICATED BERRY LIP BALM TOP PRN (22:43)
--- NOTE | 2019-03-11 00:09 | PROGRESS NOTE ---
DATE: 03/10/2019 SUBJECTIVE: Patient notes overall she is starting to feel a little bit better. She is having less cough, congestion, less shortness of breath. Denies any fevers. Denies any chest pain. OBJECTIVE: Vital signs: Temperature 98, pulse 84, respiratory 18, BP 169/69. General: Patient is pleasant. She is lying in the bed. She is in no distress. She is actually preparing to order breakfast on her own. HEENT: Normocephalic. Neck: Supple. Cardiovascular: Regular rate. No murmurs. Chest: Clear, nonlabored. No crackles. No wheezing. Abdomen: Soft, nondistended, nontender. Extremities: Moves all extremities. Neurologic: No changes. ASSESSMENT: 1. Right lower lobe pneumonia. 2. Diabetes. 3. Hypertension. 4. Congestive heart failure, systolic. 5. Chronic obstructive pulmonary disease. PLAN: We will continue patient in the hospital. Continue antibiotics, oxygen, breathing treatments. Hopefully, home over the next 2 days or so. cc: Hipolito Dee MD
[2019-03-11] MEDS: SYNTHROID PO SCH (06:11)
[2019-03-11] MEDS: DUONEB (A & A) INH PRN ×2 (07:30→19:56)
[2019-03-11] MEDS: LEVAQUIN PO SCH (08:55)
[2019-03-11] MEDS: PLAVIX PO SCH (08:55)
[2019-03-11] MEDS: LASIX PO SCH (08:56)
[2019-03-11] MEDS: ASPIRIN PO SCH (08:56)
[2019-03-11] MEDS: GLUCOTROL PO SCH ×2 (08:56→22:49)
[2019-03-11] MEDS: NORVASC PO SCH ×2 (08:56→22:49)
[2019-03-11] MEDS: ZOCOR PO SCH (22:49)
[2019-03-11] MEDS: IMDUR PO SCH (22:49)
[2019-03-11] MEDS: TENORMIN PO SCH (22:49)
[2019-03-11] MEDS: ALDACTONE PO SCH (22:49)
[2019-03-11] MEDS: NORCO-10 PO PRN (22:55)
--- NOTE | 2019-03-12 03:39 | PROGRESS NOTE ---
DATE: 03/11/2019 SUBJECTIVE: Patient notes that she is feeling better. Has cough and congestion. She is starting to ambulate a little bit better. PHYSICAL EXAMINATION: Vital Signs: Reviewed. Temp 97.6 degrees, pulse 67, respiratory 18, BP 143/60. General: Patient is in no current respiratory distress. She is awake, alert. She is oriented. HEENT: Normocephalic. Neck: Supple. Cardiovascular: Regular rate. Chest: Clear. No crackles. No wheezing. Abdomen: Soft, nondistended, nontender. Extremities: Moves all extremities. Neurologic: No changes. ASSESSMENT: 1. Pneumonia. 2. Diabetes. 3. Hypertension. 4. Congestive heart failure, systolic without exacerbation. 5. Chronic obstructive pulmonary disease without exacerbation. PLAN: Continue patient in the hospital, antibiotics, breathing treatments, wean her oxygen. Hopefully, home tomorrow. cc: Hipolito Dee MD
[2019-03-12] MEDS: SYNTHROID PO SCH (06:13)
[2019-03-12] MEDS: DUONEB (A & A) INH PRN (08:37)
[2019-03-12] MEDS: LEVAQUIN PO SCH (10:27)
[2019-03-12] MEDS: ASPIRIN PO SCH (10:28)
[2019-03-12] MEDS: PLAVIX PO SCH (10:28)
[2019-03-12] MEDS: GLUCOTROL PO SCH (10:28)
[2019-03-12] MEDS: LASIX PO SCH (10:28)
[2019-03-12] MEDS: NORVASC PO SCH (10:28)
[2019-03-12 13:57] VITALS: BP 117/47
--- NOTE | 2019-03-13 02:27 | DISCHARGE SUMMARY ---
ADMISSION DATE: 03/09/2019 DISCHARGE DATE: 03/12/2019 Dictating a discharge summary on Shavon Braden this is for . DIAGNOSES: 1. Right lower lobe pneumonia. 2. Diabetes mellitus. 3. Hypertension. 4. Congestive heart failure systolic without exacerbation. 5. Chronic obstructive pulmonary disease without exacerbation. DIAGNOSTICS: 1. 03/09/2019 chest x-ray revealed waxing and waning pulmonary opacities which may indicate pneumonia, improved left pleural collection. 2. 03/10/2019 chest x-ray revealed stable chest. 3. Blood cultures x2 with no growth after 48 hours. 4. Urine culture revealed no growth. HOSPITAL COURSE: Ms. Braden presented to the emergency room complaining of shortness of breath, congestion and increased work of breathing that had been present for about a week. She was found to have right lower lobe pneumonia. Blood cultures returned negative. She was initially treated with Levaquin IV and will be discharged with Levaquin for 5 more days. Thankfully, she improved. Over the last 24 hours she has been up out of bed, sat in a chair. Her is a patient in the bed next to her. She has actually been participating in his care. She was initially on oxygen supplementation. It has been discontinued. O2 saturation stayed 97 to 100 percent on room air. She has remained afebrile. DISCHARGE VITAL SIGNS: Blood pressure is 117/47 with a heart rate of 69, respirations are 18, temperature is 97.5 degrees oral with room air sats 97-100%. PHYSICAL EXAMINATION: Cardiovascular: Regular rate and rhythm. S1 and S2 appreciated. She has no lower extremity edema. Calves nontender bilateral with peripheral pulses palpable x4 extremities. Pulmonary: Breath sounds are diminished. Chest rises and falls symmetric with respiration. Chest wall is nontender to palpation. Gastrointestinal: Abdomen is soft, nontender, nondistended with bowel sounds in all 4 quadrants. Neurologic: She is alert and oriented x3. Skin: Warm and dry. DISCHARGE MEDICATIONS: 1. Atenolol 50 mg p.o. at bedtime. 2. Isosorbide mononitrate 30 mg p.o. at bedtime. 3. Imipramine 20 mg at bedtime. 4. Spironolactone 50 mg p.o. at bedtime. 5. Zocor 40 mg p.o. at bedtime. 6. Norvasc 5 mg p.o. b.i.d. 7. Aspirin 81 mg p.o. daily. 8. Glipizide 2.5 p.o. b.i.d. 9. Aspirin 81 mg p.o. daily. 10. Lasix 20 mg p.o. daily. 11. Phenergan 25 mg p.o. p.r.n. 12. Plavix 75 mg p.o. daily. 13. Synthroid 50 mcg p.o. 14. DuoNebs q.4 hours p.r.n. 15. Levaquin 500 mg p.o. daily x5 days. FOLLOW-UP: Dr. Jag Jackson, in the next 1 to 2 weeks. She needs to call in the morning to schedule an appointment. She has been instructed to call to be seen sooner or return to the ER for any syncope, dizziness, chest pain, palpitations, purulent cough, increasing shortness of breath, PND, orthopnea, temperature greater than 101, any chest pain, palpitations, nausea, vomiting, diarrhea, constipation, black or bloody vomitus or stools, any hematuria, dysuria, frequency, urgency. Or for any questions or concerns that she may have. She is being discharged home in stable condition with family members . TIME: This is a greater than 30 minute discharge. Dictated by NOVA Malik for Hipolito Dee MD cc: NOVA Malik MD [facility], MD [facility]
--- NOTE | 2019-03-13 05:35 | DISCHARGE SUMMARY ---
ADMISSION DATE: 03/09/2019 DISCHARGE DATE: 03/12/2019 ADDENDUM: Patient seen and examined by myself. Full note dictated and discussed with nurse practitioner. On discharge, patient is awake, alert. She is in no current distress. She is ambulating in the [place] with minimal difficulty. We will discharge her home. She will continue antibiotics for a total of 7 day course. She will follow up outpatient with treatment facility of choice. Please see full note. cc: Hipolito Dee MD
--- NOTE | 2019-03-14 15:33 | DISCHARGE SUMMARY ---
ADMISSION DATE: 03/09/2019 DISCHARGE DATE: 03/12/2019 DISCHARGE DIAGNOSES: 1. Right lower lobe pneumonia. 2. Diabetes. 3. Hypertension. 4. Systolic congestive heart failure, stable. 5. Chronic obstructive pulmonary disease, stable. CONSULTATIONS: None. PROCEDURES: None. BRIEF HOSPITAL COURSE: The patient is an 84-year-old female, who presented to the hospital with increased cough, congestion, shortness of breath, increased work of breathing. She was placed on antibiotics, breathing treatments and oxygen. She had an uneventful hospital course. On discharge, she is awake, alert. She is in no distress, and therefore she will be discharged home. DISPOSITION: Patient will be discharged home. She was transitioned over to oral antibiotics. She will continue Levaquin for another 5 days at home. She will continue her other home medications of aspirin, Plavix, glipizide, Imdur, Synthroid, hydrocodone, Lasix and, if without change, will continue nebulized treatments every 4 to 6 hours. TIME SPENT: Greater than 30 minutes was spent in total care. cc: Hipolito Dee MD
== END 2019-03-12 15:45 | disposition home or self-care (01) | DRG 194 ==
LOC: P.ED 16:13 → P.MEDSURG 21:03
PROVIDERS: ATTEND Family Medicine
CPT/HCPCS: 36415; 71020; 71046; 80053; 81001; 82550; 82948; 83605; 83880; 84484; 85025; 85027; 85610; 85730; 87040; 87088; 93005; 94640; 94760; 94761; 94799; 99285; A9270; J1956; J7030; XXXXX